=== PATIENT | female | born 1950 | race Caucasian/White ===

== ENCOUNTER 2018-12-03 12:07 | Outpatient (REF) | payer MEDICARE, OTHER, SELFPAY ==
[2018-12-03 20:47] LABS: HCT 42.9 % (36.0-46.0); HGB 14.1 g/dL (12.0-15.5); Mean Corp. HGB Concentration 32.9 g/dL (32.0-36.0); Mean Corpuscular Hemoglobin 32.3 pg (27.0-33.0); Mean Corpuscular Volume 98.2 fL (80-95); Mean Platelet Volume 9.3 fL (8.0-11.0); Platelet Count 294 x1000/uL (130-400); RBC 4.37 m/cumm (4.00-5.20); RBC Distribution Width 12.7 % (11.7-14.6); White Blood Cell Count 4.41 k/cumm (4.4-10.8)
[2018-12-03 20:57] LABS: ALT 36 U/L (14-59); AST 25 U/L (15-37); Albumin 4.3 g/dL (3.4-5.0); Alkaline Phosphatase 70 U/L (46-116); Anion Gap 10.2 mmol/L (3-11); BUN 17 mg/dL (7-18); Bilirubin, Total 0.6 mg/dL (0.2-1.0); CO2 25.8 mmol/L (21.0-32.0); Calculated LDL 133 mg/dL; Chloride 104 mmol/L (98-107); Cholesterol 233 mg/dL (50-200); Glucose 87 mg/dL (70-100); HDL Cholesterol 84 mg/dL (40-60); Potassium 4.3 mmol/L (3.5-5.1); Sodium 140 mmol/L (136-145); TSH 0.76 uIU/mL (0.36-3.74); Total Protein 8.1 g/dL (6.4-8.2); Triglyceride 81 mg/dL (30-150)
[2018-12-05 11:06] LABS: Lyme Ab w Rflx to Lyme Confirm Negative
[2018-12-07 02:02] LABS: Anaplasma phagocytophilum Negative (Negative); B. miyamotoi PCR Negative (Negative); Babesia divergens/MO-1 Negative (Negative); Babesia duncani Negative (Negative); Babesia microti Negative (Negative); Ehrlichia chaffeensis Negative (Negative); Ehrlichia ewingii/canis Negative (Negative); Ehrlichia muris eauclairensis Negative (Negative)
== END 2018-12-03 12:27 ==
LOC: NCHCN 12:07
PROVIDERS: PCP Nurse Practitioner Family; Visit Provider Nurse Practitioner Family
DX: E78.5 Hyperlipidemia, unspecified (principal); E04.1 Nontoxic single thyroid nodule; I25.10 Atherosclerotic heart disease of native coronary artery without angina pectoris; A77.40 Ehrlichiosis, unspecified
CPT/HCPCS: 80053; 80061; 85027; 87798; 84443; 86618

== ENCOUNTER 2020-07-13 15:03 | Outpatient (REF) | payer MEDICARE, OTHER, SELFPAY | END 2020-07-13 15:04 | disposition home or self-care (01) | LOC: NCHCN 15:03 | PROVIDERS: PCP Nurse Practitioner Family; Visit Provider Internal Medicine | DX: R30.0 Dysuria (principal) | CPT/HCPCS: 87077; 87086; 87186 ==

== ENCOUNTER 2020-08-25 10:26 | Outpatient (REF) | payer MEDICARE, OTHER, SELFPAY ==
[2020-08-25 13:25] LABS: Hemoglobin A1C 5.5 % (<5.7)
[2020-08-25 14:07] LABS: ALT 37 U/L (14-59); AST 27 U/L (15-37); Albumin 3.9 g/dL (3.4-5.0); Alkaline Phosphatase 69 U/L (46-116); Anion Gap 8.4 mmol/L (3-11); BUN 21 mg/dL (7-18); Bilirubin, Total 0.6 mg/dL (0.2-1.0); CO2 28.6 mmol/L (21.0-32.0); CREATININE 0.7 mg/dL (0.55-1.02); Calcium 8.7 mg/dL (8.5-10.1); Calculated LDL 116 mg/dL (<100); Chloride 108 mmol/L (98-107); Cholesterol 214 mg/dL (<200); Glucose 97 mg/dL (74-106); HDL Cholesterol 84 mg/dL (40-60); Potassium 4.3 mmol/L (3.5-5.1); Sodium 145 mmol/L (136-145); TSH 0.71 uIU/mL (0.36-3.74); Total Protein 7.6 g/dL (6.4-8.2); Triglyceride 70 mg/dL (<150)
== END 2020-08-25 10:27 | disposition home or self-care (01) ==
LOC: NCHCN 10:26
PROVIDERS: PCP Nurse Practitioner Family; Visit Provider Nurse Practitioner Family
DX: E04.1 Nontoxic single thyroid nodule (principal); E78.5 Hyperlipidemia, unspecified; R79.89 Other specified abnormal findings of blood chemistry
CPT/HCPCS: 80053; 80061; 83036; 84443

== ENCOUNTER 2020-12-25 09:43 | Outpatient (REF) | payer MEDICARE, OTHER, SELFPAY ==
[2020-12-25 14:28] LABS: Calculated LDL 112 mg/dL (<100); Cholesterol 219 mg/dL (<200); HDL Cholesterol 92 mg/dL (40-60); Triglyceride 77 mg/dL (<150)
== END 2020-12-25 09:44 | disposition home or self-care (01) ==
LOC: NCHCN 09:43
PROVIDERS: PCP Nurse Practitioner Family; Visit Provider Nurse Practitioner Family
DX: E78.89 Other lipoprotein metabolism disorders (principal)
CPT/HCPCS: 80061

== ENCOUNTER 2021-03-04 08:12 | Outpatient (REF) | payer MEDICARE, OTHER, SELFPAY ==
[2021-03-04 15:19] LABS: Calculated LDL 81 mg/dL (<100); Cholesterol 178 mg/dL (<200); HDL Cholesterol 86 mg/dL (40-60); Triglyceride 57 mg/dL (<150)
== END 2021-03-04 08:13 | disposition home or self-care (01) ==
LOC: NCHCN 08:12
PROVIDERS: PCP Nurse Practitioner Family; Visit Provider Nurse Practitioner Family
DX: E78.5 Hyperlipidemia, unspecified (principal)
CPT/HCPCS: 80061

== ENCOUNTER 2021-11-26 21:41 | Outpatient (REF) | payer MEDICARE, OTHER, SELFPAY ==
[2021-11-26 22:09] LABS: HCT 44.7 % (36.0-46.0); HGB 14.4 g/dL (11.2-15.7); MCH 31.6 pg (27.0-33.0); MCHC 32.2 % (32.0-36.0); MCV 98 fL (80-95); MPV 9.2 fL (8.0-11.0); Platelet Count 270 10^3/uL (130-400); RBC 4.55 10^6/uL (3.93-5.22); RDW 11.9 % (11.7-14.6); RDW-SD 43.1 fL; WBC 5.65 10^3/uL (4.4-10.8)
[2021-11-26 22:27] LABS: ALT 69 U/L (14-59); AST 47 U/L (15-37); Alkaline Phosphatase 72 U/L (46-116); Anion Gap 6.9 mmol/L (3-11); BUN 19 mg/dL (7-18); Bilirubin, Total 0.5 mg/dL (0.2-1.0); CO2 29.1 mmol/L (21.0-32.0); CREATININE 0.7 mg/dL (0.55-1.02); Calcium 8.9 mg/dL (8.5-10.1); Chloride 104 mmol/L (98-107); Estimated GFR 92.41 (mL/min/1.73m2); Glucose 111 mg/dL (74-106); Potassium 5.2 mmol/L (3.5-5.1); Sodium 140 mmol/L (136-145)
== END 2021-11-26 21:42 | disposition home or self-care (01) ==
LOC: NCHCN 21:41
PROVIDERS: PCP Nurse Practitioner Family; Visit Provider Nurse Practitioner Family
DX: I25.10 Atherosclerotic heart disease of native coronary artery without angina pectoris (principal); I34.0 Nonrheumatic mitral (valve) insufficiency
CPT/HCPCS: 80053; 85027

== ENCOUNTER 2021-12-16 15:33 | Outpatient (REF) | payer MEDICARE, OTHER, SELFPAY ==
[2021-12-16 16:14] LABS: ALT 66 U/L (14-59); AST 44 U/L (15-37); Albumin 4.1 g/dL (3.4-5.0); Alkaline Phosphatase 74 U/L (46-116); Bilirubin, Direct 0.1 mg/dL (0.0-0.2); Bilirubin, Total 0.5 mg/dL (0.2-1.0); Total Protein 7.9 g/dL (6.4-8.2)
== END 2021-12-16 15:34 | disposition home or self-care (01) ==
LOC: NCHCN 15:33
PROVIDERS: PCP Nurse Practitioner Family; Visit Provider Nurse Practitioner Family
DX: R79.89 Other specified abnormal findings of blood chemistry (principal)
CPT/HCPCS: 80076

== ENCOUNTER 2023-01-04 15:09 | Outpatient (REF) | payer MEDICARE, OTHER, SELFPAY ==
[2023-01-04 15:53] LABS: HCT 45.1 % (36.0-46.0); HGB 14.8 g/dL (11.2-15.7); MCH 31.7 pg (27.0-33.0); MCHC 32.8 % (32.0-36.0); MCV 97 fL (80-95); MPV 8.8 fL (8.0-11.0); Platelet Count 209 10^3/uL (130-400); RBC 4.67 10^6/uL (3.93-5.22); RDW 12.2 % (11.7-14.6); RDW-SD 43.3 fL; WBC 4.79 10^3/uL (4.4-10.8)
[2023-01-04 16:29] LABS: ALT 74 U/L (14-59); AST 57 U/L (15-37); Albumin 3.9 g/dL (3.4-5.0); Alkaline Phosphatase 63 U/L (46-116); Anion Gap 8.3 mmol/L (3-11); BUN 20 mg/dL (7-18); Bilirubin, Total 0.4 mg/dL (0.2-1.0); CO2 26.7 mmol/L (21.0-32.0); CREATININE 0.7 mg/dL (0.55-1.02); Calcium 9.2 mg/dL (8.5-10.1); Calculated LDL 88 mg/dL (<100); Chloride 105 mmol/L (98-107); Cholesterol 175 mg/dL (<200); Estimated GFR 91.83 (mL/min/1.73m2); Glucose 89 mg/dL (74-106); HDL Cholesterol 71 mg/dL (40-60); Potassium 4.1 mmol/L (3.5-5.1); Sodium 140 mmol/L (136-145); Total Protein 7.9 g/dL (6.4-8.2); Triglyceride 83 mg/dL (<150)
== END 2023-01-04 15:10 | disposition home or self-care (01) ==
LOC: NCHCN 15:09
PROVIDERS: PCP Nurse Practitioner Family; Visit Provider Nurse Practitioner Family
DX: I25.10 Atherosclerotic heart disease of native coronary artery without angina pectoris (principal); R03.0 Elevated blood-pressure reading, without diagnosis of hypertension; E78.5 Hyperlipidemia, unspecified
CPT/HCPCS: 80053; 80061; 85027

== ENCOUNTER 2023-01-10 15:16 | Outpatient (REF) | payer MEDICARE, OTHER, SELFPAY ==
[2023-01-10 15:50] LABS: Iron 71 ug/dL (50-170); Total Iron Binding Capacity 352 ug/dL (250-450); Transferrin Sat 20 % (15-50)
[2023-01-10 16:08] LABS: Ferritin 109 ng/mL (8-252); TSH (W/Ref FT4) 0.08 uIU/mL (0.36-3.74)
[2023-01-10 16:44] LABS: FREE T4 1.05 ng/dL (0.76-1.46)
[2023-01-11 09:37] LABS: Hepatitis A Antibody IgM Negative (Negative); Hepatitis B Core Antibody Negative (Negative); Hepatitis B surface Ag Negative (Negative); Hepatitis C Ab w Rflx HCV PCR Negative (Negative)
[2023-01-12 14:21] LABS: IgA 126 mg/dL (85-499); Interpretation (See Note); Tissue Transglutaminase IgA <1.2 U/mL (<4.0)
== END 2023-01-10 15:17 | disposition home or self-care (01) ==
LOC: NCHCN 15:16
PROVIDERS: PCP Nurse Practitioner Family; Visit Provider Nurse Practitioner Family
DX: E04.1 Nontoxic single thyroid nodule; R22.1 Localized swelling, mass and lump, neck; R79.89 Other specified abnormal findings of blood chemistry; R94.5 Abnormal results of liver function studies
CPT/HCPCS: 82784; 83516; 86704; 86709; 86803; 87340; 82728; 83540; 83550; 84439; 84443

== ENCOUNTER 2023-04-10 14:52 | Outpatient (REF) | payer MEDICARE, OTHER, SELFPAY ==
[2023-04-10 15:00] LABS: ALT 60 U/L (14-59); AST 54 U/L (15-37); Albumin 3.7 g/dL (3.4-5.0); Alkaline Phosphatase 54 U/L (46-116); Bilirubin, Direct 0.1 mg/dL (0.0-0.2); Bilirubin, Total 0.4 mg/dL (0.2-1.0); Total Protein 7.3 g/dL (6.4-8.2)
== END 2023-04-10 14:53 | disposition home or self-care (01) ==
LOC: NCHCN 14:52
PROVIDERS: PCP Nurse Practitioner Family; Visit Provider Nurse Practitioner Family
DX: R79.89 Other specified abnormal findings of blood chemistry (principal)
CPT/HCPCS: 80076

== ENCOUNTER 2023-12-26 19:45 | Outpatient (REF) | payer MEDICARE, SELFPAY ==
[2023-12-26 15:11] LABS: HCT 45.2 % (36.0-46.0); HGB 14.5 g/dL (11.2-15.7); MCH 32.2 pg (27.0-33.0); MCHC 32.1 % (32.0-36.0); MCV 100 fL (80-95); MPV 9.1 fL (8.0-11.0); Platelet Count 199 10^3/uL (130-400); RDW-SD 45.4 fL; WBC 4.12 10^3/uL (4.4-10.8)
[2023-12-26 15:45] LABS: ALT 44 U/L (14-59); AST 53 U/L (15-37); Albumin 3.9 g/dL (3.4-5.0); Alkaline Phosphatase 63 U/L (46-116); Anion Gap 7.3 mmol/L (3-11); BUN 13 mg/dL (7-18); CO2 28.7 mmol/L (21.0-32.0); CREATININE 0.7 mg/dL (0.55-1.02); Calcium 9.1 mg/dL (8.5-10.1); Calculated LDL 75 mg/dL (<100); Chloride 105 mmol/L (98-107); Cholesterol 172 mg/dL (<200); Estimated GFR 91.26 (mL/min/1.73m2); Glucose 91 mg/dL (74-106); HDL Cholesterol 82 mg/dL (40-60); Potassium 4.1 mmol/L (3.5-5.1); Sodium 141 mmol/L (136-145); TSH 1.69 uIU/Ml (0.36-3.74); Total Protein 7.7 g/dL (6.4-8.2); Triglyceride 78 mg/dL (<150)
== END 2023-12-26 19:46 | disposition home or self-care (01) ==
LOC: NCHCN 19:45
PROVIDERS: PCP Nurse Practitioner Family; Visit Provider Nurse Practitioner Family
DX: R79.9 Abnormal finding of blood chemistry, unspecified (principal); E78.5 Hyperlipidemia, unspecified
CPT/HCPCS: 80053; 80061; 85027; 84443

== ENCOUNTER 2025-03-10 18:07 | Outpatient (REF) | payer MEDICARE, OTHER, SELFPAY ==
[2025-03-10 21:40] LABS: HCT 47.4 % (36.0-46.0); HGB 15.3 g/dL (11.2-15.7); MCH 31.7 pg (27.0-33.0); MCHC 32.3 % (32.0-36.0); MCV 98 fL (80-95); MPV 9.3 fL (8.0-11.0); Platelet Count 252 10^3/uL (130-400); RBC 4.83 10^6/uL (3.93-5.22); RDW 12.2 % (11.7-14.6); RDW-SD 44.0 fL; WBC 6.22 10^3/uL (4.4-10.8)
[2025-03-10 21:53] LABS: ALT 41 U/L (10-49); AST 44 U/L (<34); Albumin 5.5 g/dL (3.2-5.0); Alkaline Phosphatase 73 U/L (46-116); Anion Gap 9.5 mmol/L (3-11); BUN 19 mg/dL (9-23); Bilirubin, Total 0.5 mg/dL (0.2-1.2); CO2 26.5 mmol/L (20.0-31.0); Calcium 9.9 mg/dL (8.3-10.6); Chloride 105 mmol/L (98-107); Cholesterol 191 mg/dL (<200); Glucose 81 mg/dL (74-106); HDL Cholesterol 84 mg/dL (>40); Potassium 4.4 mmol/L (3.5-5.1); Sodium 141 mmol/L (136-145); Total Protein 9.4 g/dL (5.7-8.2)
[2025-03-10 21:54] LABS: Hemoglobin A1C 5.5 % (<5.7)
[2025-03-10 21:56] LABS: Vitamin D 25 Total 29 ng/mL (30-100)
[2025-03-10 21:57] LABS: TSH 1.28 uIU/mL (0.55-4.78)
== END 2025-03-10 18:08 | disposition home or self-care (01) ==
LOC: NCHCN 18:07
PROVIDERS: PCP Nurse Practitioner Family; Visit Provider Nurse Practitioner Family
DX: Z13.29 Encounter for screening for other suspected endocrine disorder (principal); Z13.0 Encounter for screening for diseases of the blood and blood-forming organs and certain disorders involving the immune mechanism; I25.10 Atherosclerotic heart disease of native coronary artery without angina pectoris; R74.01 Elevation of levels of liver transaminase levels; Z13.1 Encounter for screening for diabetes mellitus
CPT/HCPCS: 80053; 80061; 82306; 85027; 83036; 84443